=== PATIENT | male | born 1995 | race Caucasian/White ===

== ENCOUNTER 2025-04-07 10:42 | Emergency (ER) | payer SELFPAY ==
[~2025-04-07] VITALS: Ht 185.4 cm; Wt 96.2 kg
[~2025-04-07 10:42] MED LIST: ACET1TAB55 PO; ASPI81CH8 PO; TRAM50TA2 PO
[2025-04-07] MEDS ORDERED: ONDANSETRON 4MG 2ML VIAL IV ONE (11:40)
[2025-04-07 12:10] LABS: BASO # 0.0 10^3/uL (0.0-0.2); BASO % 0.2 % (0.0-1.0); EOS # 0.0 10^3/uL (0.0-0.5); EOS % 0.0 % (0.0-3.0); LYMPH # 0.6 10^3/uL (1.5-5.0); LYMPH % 6.8 % (24.0-44.0); MONO # 1.0 10^3/uL (0.0-0.8); MONO % 10.5 % (2.0-8.0); NEUTROPHILS # 7.7 10^3/uL (1.5-8.5); NEUTROPHILS % 82.2 % (36.0-66.0); PLATELET COUNT, AUTOMATED 201 10^3/uL (150-450)
[2025-04-07] MEDS ORDERED: ISOVUE-370 76% 100 ML VIAL As Ordered ONE (12:10)
[2025-04-07] MEDS: ACETAMINOPHEN *IV* 1,000 MG in IV 1 EA IV ONE (12:23)
[2025-04-07] MEDS: FAMOTIDINE 20 MG/2 ML VIAL IVP ONE (12:23)
[2025-04-07] MEDS: NS (Normal Saline) 0.9% 1,000 ML IV ONE (12:23)
[2025-04-07 12:24] LABS: INR 1.09
[2025-04-07 12:36] LABS: ALT/SGPT 21 U/L (7.0-40); AST/SGOT 29 U/L (<34); CALCIUM LEVEL 8.8 MG/DL (8.5-10.1); CARBON DIOXIDE LEVEL 25 MMOL/L (20-31); CHLORIDE LEVEL 95 MMOL/L (98-107); CREATININE FOR GFR 1.17 MG/DL (0.70-1.30); GLOMERULAR FILTRATION RATE 86.0 (>60); POTASSIUM SERUM 3.7 MMOL/L (3.5-5.1); SODIUM LEVEL 134 MMOL/L (136-145)
[2025-04-07 13:43] LABS: KETONE, URINE MANUAL REFLEX NEGATIVE (NEGATIVE); NITRITE, URINE MANUAL RFX NEGATIVE (NEGATIVE); PROTEIN, URINE MANUAL REFLEX TRACE mg/dL (NEGATIVE); SP GRAVITY,URINE MANUAL REFLEX 1.005 (1.002-1.035); UROBILINOGEN, UA MANUAL REFLEX NORMAL (NORMAL)
[2025-04-07 13:46] LABS: WBC, URINE MAN RFX NONE SEEN /hpf (0-3)
[2025-04-07 13:47] LABS: HYALINE CAST, URINE RFX NONE SEEN /lpf (0-1); MICROSCOPIC EXAM RFX UNSPUN; RBC, URINE MAN REFLEX 0-1 /hpf (0-3); SQUAMOUS EPITHELIAL URINE RFX NONE SEEN /hpf (SMALL AMT)
[2025-04-07 14:25] LABS: AMPHETAMINES LEVEL URINE NEGATIVE (NEGATIVE); BARBITURATES URINE NEGATIVE (NEGATIVE); BENZODIAZEPINES URINE NEGATIVE (NEGATIVE)
[2025-04-07 14:26] LABS: METHADONE URINE NEGATIVE (NEGATIVE); OPIATES URINE NEGATIVE (NEGATIVE); PHENCYCLIDINE URINE NEGATIVE (NEGATIVE)
[2025-04-07 14:27] LABS: CANNABINOIDS URINE POSITIVE (NEGATIVE); COCAINE METABOLITE URINE POSITIVE (NEGATIVE)
[2025-04-07] MEDS: AZITHROMYCIN 250 MG TABLET PO ONE (14:30)
[2025-04-07] MEDS: cefTRIAXone SOD 1 GM in DEXTROSE 5% (D5W) ADV/MINI-BAG 50 ML IV ONE (14:30)
[2025-04-07 16:03] VITALS: TEMP 100
[2025-04-07 16:15] VITALS: BP 138/77; O2SAT 95
[2025-04-07] MEDS ORDERED: AMOX500T PO (16:15)
== END 2025-04-07 16:23 | disposition home or self-care (01) ==
LOC: M ED 10:42
DX: J18.1 Lobar pneumonia, unspecified organism (principal); F19.10 Other psychoactive substance abuse, uncomplicated; F17.200 Nicotine dependence, unspecified, uncomplicated; F12.10 Cannabis abuse, uncomplicated
CPT/HCPCS: 70450; 71046; 71250; 72125; 74177; 80047; 80048; 80076; 80307; 81000; 81015; 83605; 83690; 85025; 85610; 85730; 87040; 87486; 87581; 87633; 87798; 87880; 93005; 93041; 96365; 96366; 96368; 96375; 99285; J0131; J0696; J1308; J2765; Q9967